=== PATIENT | female | born 2000 | race Caucasian/White ===

== ENCOUNTER → 2025-01-17 | Outpatient (CLI) | payer BC ==
--- NOTE | 2025-01-18 11:48 | HMCIMG ---
Right BREAST ULTRASOUND: CLINICAL HISTORY: Lump right breast Finding: Real-time examination of the [right/left] breast demonstrates homogeneous echotexture throughout the breast without evidence of focal solid mass. The right breast 11:00 there is a small cyst measuring 0.3 x 0.2 x 0.3 cm. The right axilla has a benign-appearing lymph node measuring 0.7 x 0.4 x 0.8 cm.. IMPRESSION: No solid mass seen in the right breast. Small cyst in the right breast at 11:00. CATEGORY 2: BENIGN FINDINGS Recommend monthly self breast exam as well as annual clinical examination. A negative x-ray should not delay biopsy if a dominant or clinically suspicious mass is present, since 8-10% of cancers are not identified by mammography. Dense breasts particularly, may obscure an underlying neoplasm. Some of these may be detected clinically and therefore, clinical examination is an essential part of breast evaluation. .
== END | disposition home or self-care (01) ==
LOC: RAH 13:00
PROVIDERS: ATTEND Family Medicine
DX: N60.01 Solitary cyst of right breast (principal); N63.10 Unspecified lump in the right breast, unspecified quadrant; N64.4 Mastodynia
CPT/HCPCS: 76641